=== PATIENT | male | born 1945 | race African-American/Black ===

== ENCOUNTER 2023-03-06 13:36 | Inpatient (IN) | payer MEDICARE, OTHER ==
[~2023-03-06] VITALS: Ht 170.2 cm; Wt 67.6 kg
[2023-03-06] MEDS ORDERED: MAG30ORA PO (14:09)
[2023-03-06] MEDS ORDERED: NA P133E RC (14:09)
[2023-03-06] MEDS ORDERED: MAGN400O6 PO (14:09)
[2023-03-06] MEDS ORDERED: ACET-2605 PO (14:09)
[2023-03-06] MEDS ORDERED: OLAN2.5T3 PO (14:09)
[2023-03-06] MEDS ORDERED: DOCU100T2 PO (14:09)
[2023-03-06] MEDS ORDERED: OLAN5TAB3 PO (14:09)
[2023-03-06] MEDS ORDERED: LISI20TA30 PO (14:09)
[2023-03-06] MEDS ORDERED: ATOR80TA PO (14:09)
[2023-03-06] MEDS ORDERED: CARV3.122 PO (14:09)
[2023-03-06] MEDS ORDERED: TAMS-12 PO (14:09)
[2023-03-06] MEDS ORDERED: ACET-868 PO (14:09)
[2023-03-06] MEDS ORDERED: CLON0.1T PO (14:09)
[2023-03-06] MEDS ORDERED: DIVA-76 PO (14:09)
[2023-03-06] MEDS ORDERED: POLY15DR17 EACHEYE (14:09)
[2023-03-06 14:32] LABS: BASOPHILS % (AUTO) 0.6 % (0.0-2.0); EOSINOPHILS # (AUTO) 0.2 K/uL (0.0-0.7); EOSINOPHILS % (AUTO) 2.3 % (0.0-6.0); HEMATOCRIT 36 % (39-51); HEMOGLOBIN 11.8 g/dL (13.5-17.5); LYMPHOCYTES # (AUTO) 1.7 K/uL (0.8-4.8); LYMPHOCYTES % (AUTO) 20.3 % (20.0-44.0); MEAN CORPUSCULAR HEMOGLOBIN 26 PG (26.0-33.0); MEAN CORPUSCULAR HGB CONC 33 g/dl (31.0-36.0); MEAN CORPUSCULAR VOLUME 79 fL (80-96); MONOCYTES # (AUTO) 0.9 K/uL (0.1-1.30); MONOCYTES % (AUTO) 11.2 % (2.0-12.0); NEUTROPHILS # (AUTO) 5.5 K/uL (1.8-8.9); NEUTROPHILS % (AUTO) 65.6 % (43.0-81.0); RED BLOOD CELL COUNT(AUTO) 4.58 MIL/uL (4.5-6.0); RED CELL DISTRIBUTION WIDTH 17.3 % (11.5-15.0); WHITE BLOOD COUNT (AUTO) 8.3 K/uL (4.3-11.0)
[2023-03-06 14:56] LABS: ALANINE AMINOTRANSFERASE 24 U/L (12-78); ALBUMIN 2.8 g/dL (3.4-5.0); ALCOHOL, BLOOD < 3 mg/dL (0-10); ALKALINE PHOSPHATASE 77 U/L (46-116); ASPARTATE AMINOTRANSFERASE 14 U/L (15-37); BILIRUBIN,DIRECT 0.1 mg/dL (0.0-0.2); BILIRUBIN,TOTAL 0.3 mg/dL (0.2-1.0); CARBON DIOXIDE 30 mmol/L (21-32); CHLORIDE 104 mmol/L (98-107); CREATININE 1.4 mg/dL (0.6-1.3); GLUCOSE 77 mg/dL (74-106); POTASSIUM 3.8 mmol/L (3.5-5.1); SODIUM SERUM 139 mmol/L (136-145); TOTAL PROTEIN, SERUM 7.5 g/dL (6.4-8.2); UREA NITROGEN, BLOOD 21 mg/dL (7-18)
[2023-03-06 14:57] LABS: ACETAMINOPHEN 0 ug/ml (10-30); SALICYLATE 0.3 mg/dL (2.8-20.0)
[2023-03-06 15:11] LABS: PLATELET COUNT (AUTO) 176 K/uL (150-450)
[2023-03-06 15:36] LABS: APPEARANCE,URINE CLEAR (CLEAR); BILIRUBIN,URINE NEGATIVE (NEGATIVE); BLOOD, URINE NEGATIVE Ery/uL (NEGATIVE); COLOR,URINE YELLOW (YELLOW); KETONES,URINE NEGATIVE (NEGATIVE); LEUKOCYTE ESTERASE ,URINE NEGATIVE (NEGATIVE); NITRITE, URINE NEGATIVE (NEGATIVE); PROTEIN,URINE NEGATIVE (NEGATIVE); UGLUCOSE NEGATIVE (NEGATIVE); UROBILINOGEN,URINE 0.2 EU/dL (0.2)
[2023-03-06 15:57] LABS: AMPHETAMINE, URINE NEGATIVE (NEGATIVE); BARBITURATE, URINE NEGATIVE (NEGATIVE); BENZODIAZEPINE, URINE NEGATIVE (NEGATIVE); CANNABINOID, URINE NEGATIVE (NEGATIVE); COCCAINE, URINE NEGATIVE (NEGATIVE); OPIATE, URINE NEGATIVE (NEGATIVE); PHENCYCLIDINE SCREEN,URINE NEGATIVE (NEGATIVE)
[2023-03-06] MEDS ORDERED: MAG HYDROX/AL HYDROX/SIMETH 30 ML UDC PO PRN ×2 (17:00→22:00)
[2023-03-06] MEDS ORDERED: ACETAMINOPHEN 325 MG TABLET PO PRN ×2 (17:00→22:00)
[2023-03-06] MEDS ORDERED: MAGNESIUM HYDROXIDE 30 ML UDC PO PRN ×2 (17:00→22:00)
[2023-03-06] MEDS: CARVEDILOL 3.125 MG TABLET PO SCH (17:00)
[2023-03-06] MEDS ORDERED: ACETAMINOPHEN ES 500 MG TABLET PO PRN (17:00)
[2023-03-06] MEDS ORDERED: CARVEDILOL 3.125 MG TABLET ONE (18:09)
[2023-03-06] MEDS ORDERED: BLOOD SUGAR DIAGNOSTIC 1 EACH STRIP IN ONE (22:00)
[2023-03-06] MEDS: TAMSULOSIN 0.4 MG CAP.SR.24H PO SCH (22:34)
[2023-03-06] MEDS: ATORVASTATIN 40 MG TABLET PO SCH (22:34)
[2023-03-06 23:11] VITALS: BP 151/96; TEMP 98.1
[2023-03-06] MEDS: TEMAZEPAM 7.5 MG CAPSULE PO PRN (23:19)
[2023-03-07] MEDS: CLONIDINE HCL 0.1 MG TABLET PO PRN (01:46)
[2023-03-07] MEDS: LORAZEPAM 0.5 MG TABLET PO PRN (05:16)
[2023-03-07 08:00] VITALS: BP 149/86; TEMP 98.7; O2SAT 100
[2023-03-07 08:10] LABS: CREATININE 1.4 mg/dL (0.6-1.3)
[2023-03-07 08:16] LABS: CHOLESTEROL 137 mg/dL (<200); HDL CHOLESTEROL 47 mg/dL (40-60); LDL 69 mg/dL (0-99); TRIGLYCERIDES 70 mg/dL (30-150)
[2023-03-07] MEDS: POLYVINYL ALCOHOL 15 ML BOTTLE EACHEYE SCH ×2 (08:40→16:33)
[2023-03-07] MEDS: CARVEDILOL 3.125 MG TABLET PO SCH ×2 (08:40→16:34)
[2023-03-07] MEDS: DOCUSATE SODIUM 100 MG CAPSULE PO SCH ×2 (08:40→16:34)
[2023-03-07] MEDS: LISINOPRIL (20MG) 20 MG TABLET PO SCH (08:41)
[2023-03-07] MEDS: OLANZAPINE 2.5 MG TABLET PO SCH ×2 (11:43→16:34)
[2023-03-07] MEDS: DIVALPROEX SODIUM 125 MG CAP.SPRINK PO SCH ×2 (12:15→16:34)
[2023-03-07 16:00] VITALS: BP 150/96; TEMP 98.9; O2SAT 97
[2023-03-07 20:01] VITALS: BP 141/98; TEMP 98; O2SAT 98
[2023-03-07] MEDS: ATORVASTATIN 40 MG TABLET PO SCH (21:11)
[2023-03-07] MEDS: TAMSULOSIN 0.4 MG CAP.SR.24H PO SCH (21:11)
[2023-03-07] MEDS: OLANZAPINE 10 MG TABLET PO SCH (21:11)
[2023-03-07] MEDS: TEMAZEPAM 7.5 MG CAPSULE PO PRN (21:27)
[2023-03-08] MEDS: LORAZEPAM 0.5 MG TABLET PO PRN (00:51)
[2023-03-08 08:00] VITALS: BP 159/95; TEMP 98.7; O2SAT 96
[2023-03-08] MEDS: DIVALPROEX SODIUM 125 MG CAP.SPRINK PO SCH ×3 (08:07→16:46)
[2023-03-08] MEDS: OLANZAPINE 2.5 MG TABLET PO SCH ×2 (08:07→16:48)
[2023-03-08] MEDS: CARVEDILOL 3.125 MG TABLET PO SCH ×2 (08:07→16:47)
[2023-03-08] MEDS: LISINOPRIL (20MG) 20 MG TABLET PO SCH (08:07)
[2023-03-08] MEDS: DOCUSATE SODIUM 100 MG CAPSULE PO SCH ×2 (08:07→16:46)
[2023-03-08] MEDS: POLYVINYL ALCOHOL 15 ML BOTTLE EACHEYE SCH ×2 (08:08→16:52)
[2023-03-08] MEDS: CLONIDINE HCL 0.1 MG TABLET PO PRN (08:09)
[2023-03-08 13:53] LABS: EOSINOPHIL,URINE None Seen
[2023-03-08 14:04] LABS: APPEARANCE,URINE CLEAR (CLEAR); BILIRUBIN,URINE NEGATIVE (NEGATIVE); BLOOD, URINE NEGATIVE Ery/uL (NEGATIVE); COLOR,URINE YELLOW (YELLOW); KETONES,URINE NEGATIVE (NEGATIVE); LEUKOCYTE ESTERASE ,URINE NEGATIVE (NEGATIVE); NITRITE, URINE NEGATIVE (NEGATIVE); PROTEIN,URINE TRACE mg/dl (NEGATIVE); UGLUCOSE NEGATIVE (NEGATIVE); UROBILINOGEN,URINE 0.2 EU/dL (0.2)
[2023-03-08 14:09] LABS: CREATININE, URINE 155.2 MG/DL (30.0-125.0); URINE TOTAL PROTEIN 23.2 mg/dL (0-11.9)
[2023-03-08 14:25] LABS: ADD URINE CULTURE NO; BACTERIA,URINE None seen /HPF (None Seen); RBC,URINE NONE SEEN /HPF (0-2); SQUAMOUS EPITHELIAL CELL,UR None Seen /HPF (None Seen); WBC,URINE NONE SEEN /HPF (0-3)
[2023-03-08 16:00] VITALS: BP 142/99; TEMP 97.9; O2SAT 99
[2023-03-08 20:40] VITALS: BP 149/90; TEMP 98.1; O2SAT 98
[2023-03-08] MEDS: ATORVASTATIN 40 MG TABLET PO SCH (21:21)
[2023-03-08] MEDS: TAMSULOSIN 0.4 MG CAP.SR.24H PO SCH (21:21)
[2023-03-08] MEDS: OLANZAPINE 10 MG TABLET PO SCH (21:22)
[2023-03-08] MEDS: TEMAZEPAM 7.5 MG CAPSULE PO PRN (21:26)
[2023-03-09 08:00] VITALS: BP 137/80; TEMP 97.8; O2SAT 98
[2023-03-09] MEDS: CARVEDILOL 3.125 MG TABLET PO SCH ×2 (09:58→16:33)
[2023-03-09] MEDS: POLYVINYL ALCOHOL 15 ML BOTTLE EACHEYE SCH ×2 (09:58→16:40)
[2023-03-09] MEDS: OLANZAPINE 2.5 MG TABLET PO SCH ×2 (09:58→16:33)
[2023-03-09] MEDS: DIVALPROEX SODIUM 125 MG CAP.SPRINK PO SCH ×3 (09:58→16:32)
[2023-03-09] MEDS: DOCUSATE SODIUM 100 MG CAPSULE PO SCH ×2 (09:58→16:32)
[2023-03-09] MEDS: LISINOPRIL (20MG) 20 MG TABLET PO SCH (09:59)
[2023-03-09 16:00] VITALS: BP 149/88; TEMP 97.9; O2SAT 100
[2023-03-09 20:00] VITALS: BP 145/80; TEMP 97.9; O2SAT 98
[2023-03-09] MEDS: TAMSULOSIN 0.4 MG CAP.SR.24H PO SCH (21:29)
[2023-03-09] MEDS: ATORVASTATIN 40 MG TABLET PO SCH (21:30)
[2023-03-09] MEDS: OLANZAPINE 10 MG TABLET PO SCH (21:30)
[2023-03-10] MEDS ORDERED: Z GUARD REMEDY 4 OZ OINT TP PRN (07:00)
[2023-03-10 08:00] VITALS: BP 145/99; TEMP 97.5; O2SAT 94
[2023-03-10] MEDS: DOCUSATE SODIUM 100 MG CAPSULE PO SCH ×2 (08:46→16:46)
[2023-03-10] MEDS: DIVALPROEX SODIUM 125 MG CAP.SPRINK PO SCH ×3 (08:46→16:45)
[2023-03-10] MEDS: CARVEDILOL 3.125 MG TABLET PO SCH ×2 (08:46→16:46)
[2023-03-10] MEDS: LISINOPRIL (20MG) 20 MG TABLET PO SCH (08:46)
[2023-03-10] MEDS: OLANZAPINE 2.5 MG TABLET PO SCH ×2 (08:46→16:45)
[2023-03-10] MEDS: POLYVINYL ALCOHOL 15 ML BOTTLE EACHEYE SCH ×2 (08:47→16:46)
[2023-03-10 16:00] VITALS: BP 137/90; TEMP 98.7; O2SAT 96
[2023-03-10 17:11] LABS: BASOPHILS % (AUTO) 0.5 % (0.0-2.0); EOSINOPHILS # (AUTO) 0.2 K/uL (0.0-0.7); EOSINOPHILS % (AUTO) 2.9 % (0.0-6.0); HEMATOCRIT 37 % (39-51); HEMOGLOBIN 11.8 g/dL (13.5-17.5); LYMPHOCYTES % (AUTO) 28.4 % (20.0-44.0); MEAN CORPUSCULAR HEMOGLOBIN 26 PG (26.0-33.0); MEAN CORPUSCULAR HGB CONC 32 g/dl (31.0-36.0); MEAN CORPUSCULAR VOLUME 79 fL (80-96); MONOCYTES % (AUTO) 14.7 % (2.0-12.0); NEUTROPHILS # (AUTO) 3.8 K/uL (1.8-8.9); NEUTROPHILS % (AUTO) 53.5 % (43.0-81.0); PLATELET COUNT (AUTO) 133 K/uL (150-450); RED BLOOD CELL COUNT(AUTO) 4.63 MIL/uL (4.5-6.0); RED CELL DISTRIBUTION WIDTH 16.9 % (11.5-15.0)
[2023-03-10 17:33] LABS: ALANINE AMINOTRANSFERASE 20 U/L (12-78); ALBUMIN 2.5 g/dL (3.4-5.0); ALKALINE PHOSPHATASE 73 U/L (46-116); ASPARTATE AMINOTRANSFERASE 34 U/L (15-37); BILIRUBIN,TOTAL 0.4 mg/dL (0.2-1.0); CALCIUM, SERUM 8.6 mg/dL (8.5-10.1); CARBON DIOXIDE 28 mmol/L (21-32); CHLORIDE 105 mmol/L (98-107); CREATININE 1.5 mg/dL (0.6-1.3); GLUCOSE 99 mg/dL (74-106); POTASSIUM 4.2 mmol/L (3.5-5.1); SODIUM SERUM 140 mmol/L (136-145); TOTAL PROTEIN, SERUM 7.1 g/dL (6.4-8.2); UREA NITROGEN, BLOOD 32 mg/dL (7-18)
[2023-03-10] MEDS: CLONIDINE HCL 0.1 MG TABLET PO PRN (20:38)
[2023-03-10 20:43] VITALS: BP 169/98; TEMP 98.2; O2SAT 96
[2023-03-10] MEDS: TAMSULOSIN 0.4 MG CAP.SR.24H PO SCH (22:04)
[2023-03-10] MEDS: ATORVASTATIN 40 MG TABLET PO SCH (22:04)
[2023-03-10] MEDS: OLANZAPINE 10 MG TABLET PO SCH (22:05)
[2023-03-11 08:00] VITALS: BP 125/84; TEMP 97.8; O2SAT 100
[2023-03-11 08:00] LABS: BASOPHILS # (AUTO) 0.1 K/uL (0.0-0.2); BASOPHILS % (AUTO) 0.7 % (0.0-2.0); EOSINOPHILS # (AUTO) 0.2 K/uL (0.0-0.7); EOSINOPHILS % (AUTO) 2.7 % (0.0-6.0); HEMATOCRIT 36 % (39-51); LYMPHOCYTES # (AUTO) 2.1 K/uL (0.8-4.8); LYMPHOCYTES % (AUTO) 24.4 % (20.0-44.0); MEAN CORPUSCULAR HEMOGLOBIN 26 PG (26.0-33.0); MEAN CORPUSCULAR HGB CONC 33 g/dl (31.0-36.0); MEAN CORPUSCULAR VOLUME 79 fL (80-96); MONOCYTES % (AUTO) 11.3 % (2.0-12.0); NEUTROPHILS # (AUTO) 5.2 K/uL (1.8-8.9); NEUTROPHILS % (AUTO) 60.9 % (43.0-81.0); PLATELET COUNT (AUTO) 141 K/uL (150-450); RED BLOOD CELL COUNT(AUTO) 4.62 MIL/uL (4.5-6.0); RED CELL DISTRIBUTION WIDTH 16.7 % (11.5-15.0); WHITE BLOOD COUNT (AUTO) 8.5 K/uL (4.3-11.0)
[2023-03-11] MEDS: LORAZEPAM 0.5 MG TABLET PO PRN (08:46)
[2023-03-11] MEDS: OLANZAPINE 2.5 MG TABLET PO SCH (08:47)
[2023-03-11] MEDS: CARVEDILOL 3.125 MG TABLET PO SCH ×2 (08:47→16:28)
[2023-03-11] MEDS: DOCUSATE SODIUM 100 MG CAPSULE PO SCH ×2 (08:47→16:28)
[2023-03-11] MEDS: LISINOPRIL (20MG) 20 MG TABLET PO SCH (08:48)
[2023-03-11] MEDS: DIVALPROEX SODIUM 125 MG CAP.SPRINK PO SCH ×3 (08:48→16:28)
[2023-03-11] MEDS: POLYVINYL ALCOHOL 15 ML BOTTLE EACHEYE SCH ×2 (08:55→16:28)
[2023-03-11 09:04] LABS: CALCIUM, SERUM 9.1 mg/dL (8.5-10.1); CARBON DIOXIDE 24 mmol/L (21-32); CHLORIDE 105 mmol/L (98-107); CREATININE 1.4 mg/dL (0.6-1.3); GLUCOSE 85 mg/dL (74-106); MAGNESIUM 2.3 mg/dL (1.8-2.4); PHOSPHORUS 4.1 mg/dL (2.5-4.9); POTASSIUM 3.9 mmol/L (3.5-5.1); SODIUM SERUM 139 mmol/L (136-145); UREA NITROGEN, BLOOD 31 mg/dL (7-18)
[2023-03-11 16:00] VITALS: BP 149/92; TEMP 97.8; O2SAT 96
[2023-03-11 20:00] VITALS: BP 128/81; TEMP 98.3; O2SAT 98
[2023-03-11] MEDS: ATORVASTATIN 40 MG TABLET PO SCH (22:05)
[2023-03-11] MEDS: OLANZAPINE 10 MG TABLET PO SCH (22:05)
[2023-03-11] MEDS: TAMSULOSIN 0.4 MG CAP.SR.24H PO SCH (22:05)
[2023-03-12 08:00] VITALS: BP 131/55; TEMP 97.7; O2SAT 97
[2023-03-12] MEDS: DOCUSATE SODIUM 100 MG CAPSULE PO SCH ×2 (09:16→17:00)
[2023-03-12] MEDS: OLANZAPINE 2.5 MG TABLET PO SCH (09:25)
[2023-03-12] MEDS: LISINOPRIL (20MG) 20 MG TABLET PO SCH (09:25)
[2023-03-12] MEDS: DIVALPROEX SODIUM 125 MG CAP.SPRINK PO SCH ×3 (09:25→17:00)
[2023-03-12] MEDS: CARVEDILOL 3.125 MG TABLET PO SCH ×2 (09:26→17:00)
[2023-03-12] MEDS: POLYVINYL ALCOHOL 15 ML BOTTLE EACHEYE SCH ×2 (09:31→17:00)
[2023-03-12 16:00] VITALS: BP 130/67; TEMP 97.7; O2SAT 97
[2023-03-12 20:59] VITALS: BP 132/98; TEMP 98.1; O2SAT 97
[2023-03-12] MEDS: OLANZAPINE 10 MG TABLET PO SCH (21:17)
[2023-03-12] MEDS: ATORVASTATIN 40 MG TABLET PO SCH (21:17)
[2023-03-12] MEDS: TAMSULOSIN 0.4 MG CAP.SR.24H PO SCH (21:17)
[2023-03-13 08:00] VITALS: BP 135/69; TEMP 98.4; O2SAT 100
[2023-03-13] MEDS: OLANZAPINE 2.5 MG TABLET PO SCH (09:44)
[2023-03-13] MEDS: DIVALPROEX SODIUM 125 MG CAP.SPRINK PO SCH ×3 (09:44→18:16)
[2023-03-13] MEDS: LISINOPRIL (20MG) 20 MG TABLET PO SCH (09:44)
[2023-03-13] MEDS: DOCUSATE SODIUM 100 MG CAPSULE PO SCH ×2 (09:44→18:15)
[2023-03-13] MEDS: POLYVINYL ALCOHOL 15 ML BOTTLE EACHEYE SCH ×2 (09:44→18:15)
[2023-03-13] MEDS: CARVEDILOL 3.125 MG TABLET PO SCH ×2 (09:44→18:15)
[2023-03-13 16:00] VITALS: BP 147/79; TEMP 98.6; O2SAT 100
[2023-03-13 20:28] VITALS: BP 149/83; TEMP 97.9; O2SAT 94
[2023-03-13] MEDS: ATORVASTATIN 40 MG TABLET PO SCH (21:15)
[2023-03-13] MEDS: OLANZAPINE 10 MG TABLET PO SCH (21:15)
[2023-03-13] MEDS: TAMSULOSIN 0.4 MG CAP.SR.24H PO SCH (21:16)
[2023-03-14 08:00] VITALS: BP 107/76; TEMP 97.8; O2SAT 97
[2023-03-14] MEDS: DIVALPROEX SODIUM 125 MG CAP.SPRINK PO SCH ×3 (08:58→16:20)
[2023-03-14] MEDS: DOCUSATE SODIUM 100 MG CAPSULE PO SCH ×2 (08:58→16:19)
[2023-03-14] MEDS: OLANZAPINE 2.5 MG TABLET PO SCH (08:58)
[2023-03-14] MEDS: LISINOPRIL (20MG) 20 MG TABLET PO SCH (08:59)
[2023-03-14] MEDS: POLYVINYL ALCOHOL 15 ML BOTTLE EACHEYE SCH ×2 (08:59→16:21)
[2023-03-14] MEDS: CARVEDILOL 3.125 MG TABLET PO SCH ×2 (08:59→16:20)
[2023-03-14 16:00] VITALS: BP 137/68; TEMP 97.9; O2SAT 100
[2023-03-14 21:17] VITALS: BP 153/76; TEMP 97.9; O2SAT 100
[2023-03-14] MEDS: TAMSULOSIN 0.4 MG CAP.SR.24H PO SCH (21:19)
[2023-03-14] MEDS: OLANZAPINE 10 MG TABLET PO SCH (21:19)
[2023-03-14] MEDS: ATORVASTATIN 40 MG TABLET PO SCH (21:19)
[2023-03-15] MEDS: TEMAZEPAM 7.5 MG CAPSULE PO PRN (00:09)
[2023-03-15 08:00] VITALS: BP 173/83; TEMP 98.7; O2SAT 99
[2023-03-15] MEDS: OLANZAPINE 2.5 MG TABLET PO SCH (09:04)
[2023-03-15] MEDS: DIVALPROEX SODIUM 125 MG CAP.SPRINK PO SCH ×2 (09:04→13:33)
[2023-03-15 09:07] VITALS: BP 173/83
[2023-03-15] MEDS: LISINOPRIL (20MG) 20 MG TABLET PO SCH (09:07)
[2023-03-15] MEDS: DOCUSATE SODIUM 100 MG CAPSULE PO SCH (09:07)
[2023-03-15] MEDS: CARVEDILOL 3.125 MG TABLET PO SCH (09:07)
[2023-03-15] MEDS: POLYVINYL ALCOHOL 15 ML BOTTLE EACHEYE SCH (09:09)
== END 2023-03-15 15:15 | DRG 885 ==
LOC: ER 13:40 → TRANSITION 19:05 → GPS 20:55
PROVIDERS: ADMIT Psychiatry & Neurology Psychosomatic Medicine; ATTEND Student in an Organized Health Care Education/Training Program
DX: F39 Unspecified mood [affective] disorder (principal); N17.0 Acute kidney failure with tubular necrosis; N18.9 Chronic kidney disease, unspecified; G93.41 Metabolic encephalopathy; E44.0 Moderate protein-calorie malnutrition; F03.92 Unspecified dementia, unspecified severity, with psychotic disturbance; F03.93 Unspecified dementia, unspecified severity, with mood disturbance; F03.911 Unspecified dementia, unspecified severity, with agitation; F29 Unspecified psychosis not due to a substance or known physiological condition; Z20.822 Contact with and (suspected) exposure to COVID-19; Z79.899 Other long term (current) drug therapy; Z73.6 Limitation of activities due to disability; E88.09 Other disorders of plasma-protein metabolism, not elsewhere classified; E78.5 Hyperlipidemia, unspecified; D64.9 Anemia, unspecified; I12.9 Hypertensive chronic kidney disease with stage 1 through stage 4 chronic kidney disease, or unspecified chronic kidney disease; M89.8X9 Other specified disorders of bone, unspecified site; F25.0 Schizoaffective disorder, bipolar type
CPT/HCPCS: 36415; 76770-TC; 80048-TC; 80053-TC; 80061-TC; 80076-TC; 80164-TC; 81001; 82565-TC; 82570-TC; 82962-TC; 83735-TC; 84100-TC; 84300-TC; 85025-TC; 87081-TC; 97110-TC; 97116-TC; 97530-TC; G0480

== ENCOUNTER 2023-06-01 22:06 | Inpatient (IN) | payer MEDICARE, OTHER ==
[~2023-06-01] VITALS: Ht 177.8 cm; Wt 83.0 kg
[~2023-06-01 22:06] MED LIST: ACET-2605 PO; ACET-868 PO; ATOR80TA PO; CARV3.122 PO; CLON0.1T PO; DIVA-76 PO; DOCU100T2 PO; LISI20TA30 PO; MAG30ORA PO; MAGN400O6 PO; NA P133E RC; OLAN2.5T3 PO; OLAN5TAB3 PO; POLY15DR17 EACHEYE; TAMS-12 PO
[2023-06-01] MEDS ORDERED: ACETAMINOPHEN 650 MG/SUPP.RECT RC ONE (22:32)
[2023-06-01] MEDS: ACETAMINOPHEN 650 MG/SUPP.RECT RC ONE (23:00)
[2023-06-01 23:17] LABS: BASOPHILS % (AUTO) 0.2 % (0.0-2.0); EOSINOPHILS # (AUTO) 0.3 K/uL (0.0-0.7); EOSINOPHILS % (AUTO) 1.3 % (0.0-6.0); HEMATOCRIT 35 % (39-51); LYMPHOCYTES # (AUTO) 0.5 K/uL (0.8-4.8); LYMPHOCYTES % (AUTO) 2.5 % (20.0-44.0); MEAN CORPUSCULAR HEMOGLOBIN 26 PG (26.0-33.0); MEAN CORPUSCULAR HGB CONC 32 g/dl (31.0-36.0); MEAN CORPUSCULAR VOLUME 83 fL (80-96); MONOCYTES # (AUTO) 0.8 K/uL (0.1-1.30); NEUTROPHILS # (AUTO) 17.7 K/uL (1.8-8.9); PLATELET COUNT (AUTO) 157 K/uL (150-450); RED BLOOD CELL COUNT(AUTO) 4.19 MIL/uL (4.5-6.0); WHITE BLOOD COUNT (AUTO) 19.2 K/uL (4.3-11.0)
[2023-06-01 23:34] LABS: INR 1.06 (0.91-1.10); PARTIAL THROMBOPLASTIN TIME 28.4 SEC (24.3-34.3); PROTHROMBIN TIME 11.2 SECS (9.2-11.1)
[2023-06-01 23:48] LABS: APPEARANCE,URINE TURBID (CLEAR); BILIRUBIN,URINE NEGATIVE (NEGATIVE); BLOOD, URINE 2+ Ery/uL (NEGATIVE); COLOR,URINE DARK YELLOW (YELLOW); KETONES,URINE TRACE mg/dL (NEGATIVE); LEUKOCYTE ESTERASE ,URINE 3+ (NEGATIVE); NITRITE, URINE NEGATIVE (NEGATIVE); PROTEIN,URINE NEGATIVE (NEGATIVE); UGLUCOSE NEGATIVE (NEGATIVE)
[2023-06-01 23:54] LABS: ADD URINE CULTURE YES; BACTERIA,URINE Moderate /HPF (None Seen); SQUAMOUS EPITHELIAL CELL,UR Rare /HPF (None Seen); WBC,URINE 51-80 /HPF (0-3)
[2023-06-02] VITALS (7 sets, daily range): BP systolic 133–164; BP diastolic 85–92; TEMP 98–99.1; O2SAT 94–100
[2023-06-02 00:05] LABS: CALCIUM, SERUM 8.7 mg/dL (8.5-10.1); CARBON DIOXIDE 30 mmol/L (21-32); CHLORIDE 109 mmol/L (98-107); CREATININE 1.7 mg/dL (0.6-1.3); GLUCOSE 109 mg/dL (74-106); POTASSIUM 3.7 mmol/L (3.5-5.1); SODIUM SERUM 146 mmol/L (136-145); UREA NITROGEN, BLOOD 33 mg/dL (7-18)
[2023-06-02 00:11] LABS: ALANINE AMINOTRANSFERASE 17 U/L (12-78); ALBUMIN 2.7 g/dL (3.4-5.0); ALKALINE PHOSPHATASE 69 U/L (46-116); ASPARTATE AMINOTRANSFERASE 11 U/L (15-37); BILIRUBIN,DIRECT 0.1 mg/dL (0.0-0.2); BILIRUBIN,TOTAL 0.5 mg/dL (0.2-1.0); TOTAL PROTEIN, SERUM 7.1 g/dL (6.4-8.2)
[2023-06-02] MEDS ORDERED: AZITHROMYCIN 500 MG VIAL ONE (00:34)
[2023-06-02] MEDS ORDERED: CEFTRIAXONE 1GM BAG (ER ONLY) 50 ML IV ONE (00:34)
[2023-06-02] MEDS: CEFTRIAXONE 1GM BAG (ER ONLY) 1 GM/50 ML PIGGYBACK IV ONE (00:45)
[2023-06-02] MEDS: AZITHROMYCIN 500 MG in IV D5W 250 ML IV ONE (01:06)
[2023-06-02 01:58] LABS: LACTIC ACID 1.7 mmol/L (0.4-2.0)
[2023-06-02] MEDS ORDERED: Z GUARD REMEDY 4 OZ OINT TP PRN (02:30)
[2023-06-02] MEDS ORDERED: ACETAMINOPHEN 325 MG TABLET PO PRN ×2 (02:30→09:30)
[2023-06-02] MEDS ORDERED: ONDANSETRON HCL/PF 4 MG/2 ML VIAL IVP PRN (02:30)
[2023-06-02] MEDS ORDERED: ASPIRIN 325 MG TABLET ONE (02:35)
[2023-06-02] MEDS: ASPIRIN 325 MG TABLET PO ONE (02:41)
[2023-06-02] MEDS: IV D5W 1,000 ML IV PRN (06:56)
[2023-06-02] MEDS: PANTOPRAZOLE 40 MG TABLET.DR PO SCH (08:19)
[2023-06-02] MEDS ORDERED: FURO20TA4 PO (09:06)
[2023-06-02] MEDS: ASPIRIN 81 MG TAB.CHEW PO SCH (09:13)
[2023-06-02] MEDS: HEPARIN SODIUM, PORCINE 5000 UNITS/1 ML VIAL SQ SCH (09:15)
[2023-06-02] MEDS ORDERED: MAGNESIUM HYDROXIDE 30 ML UDC PO PRN (09:30)
[2023-06-02] MEDS: FUROSEMIDE 40 MG/4 ML VIAL IV SCH (10:59)
[2023-06-02] MEDS: DIVALPROEX SODIUM 125 MG CAP.SPRINK PO SCH (12:41)
[2023-06-02] MEDS ORDERED: DIVALPROEX SODIUM 250 MG TABLET.DR PO SCH (13:00)
[2023-06-02] MEDS: DOCUSATE SODIUM 100 MG CAPSULE PO SCH (16:59)
[2023-06-02] MEDS: CARVEDILOL 3.125 MG TABLET PO SCH (17:00)
[2023-06-02] MEDS: CEFTRIAXONE 1 G in IV D5W 50 ML IV SCH (20:34)
[2023-06-02] MEDS ORDERED: CEFEPIME 2 GM in IV D5W 100 ML IV SCH (21:00)
[2023-06-02] MEDS ORDERED: AZITHROMYCIN 500 MG in IV D5W 250 ML IV SCH (21:00)
[2023-06-02] MEDS: CEFEPIME 1 GM in IV D5W 50 ML IV SCH (22:00)
[2023-06-02] MEDS: ATORVASTATIN 40 MG TABLET PO SCH (22:00)
[2023-06-02] MEDS: TAMSULOSIN 0.4 MG CAP.SR.24H PO SCH (22:00)
[2023-06-02] MEDS: OLANZAPINE 5 MG TABLET PO SCH (22:01)
[2023-06-03] VITALS (7 sets, daily range): BP systolic 132–159; BP diastolic 80–94; TEMP 98–99; O2SAT 92–100
[2023-06-03] MEDS: OLANZAPINE 2.5 MG TABLET PO SCH (08:17)
[2023-06-03] MEDS ORDERED: LISINOPRIL (20MG) 20 MG TABLET PO SCH (09:00)
[2023-06-03 14:42] LABS: BASOPHILS % (AUTO) 0.4 % (0.0-2.0); EOSINOPHILS # (AUTO) 0.2 K/uL (0.0-0.7); EOSINOPHILS % (AUTO) 2.2 % (0.0-6.0); HEMATOCRIT 37 % (39-51); LYMPHOCYTES # (AUTO) 1.7 K/uL (0.8-4.8); LYMPHOCYTES % (AUTO) 15.8 % (20.0-44.0); MEAN CORPUSCULAR HEMOGLOBIN 26 PG (26.0-33.0); MEAN CORPUSCULAR HGB CONC 33 g/dl (31.0-36.0); MEAN CORPUSCULAR VOLUME 80 fL (80-96); MONOCYTES # (AUTO) 1.8 K/uL (0.1-1.30); MONOCYTES % (AUTO) 16.6 % (2.0-12.0); NEUTROPHILS # (AUTO) 7.1 K/uL (1.8-8.9); PLATELET COUNT (AUTO) 132 K/uL (150-450); RED BLOOD CELL COUNT(AUTO) 4.64 MIL/uL (4.5-6.0); RED CELL DISTRIBUTION WIDTH 17.4 % (11.5-15.0); WHITE BLOOD COUNT (AUTO) 10.8 K/uL (4.3-11.0)
[2023-06-03 15:41] LABS: CALCIUM, SERUM 8.8 mg/dL (8.5-10.1); CARBON DIOXIDE 29 mmol/L (21-32); CHLORIDE 104 mmol/L (98-107); CREATININE 1.7 mg/dL (0.6-1.3); GLUCOSE 87 mg/dL (74-106); PHOSPHORUS 3.7 mg/dL (2.5-4.9); POTASSIUM 3.5 mmol/L (3.5-5.1); SODIUM SERUM 142 mmol/L (136-145); UREA NITROGEN, BLOOD 29 mg/dL (7-18)
[2023-06-03 16:53] LABS: ANISOCYTOSIS 1+; EOSINOPHILS % (MANUAL) 2 % (0-4); LYMPHOCYTES % (MANUAL) 17 % (16-48); MONOCYTES % (MANUAL) 9 % (0-11.0); NEUTROPHILS % (MANUAL) 72 (42-76); PLATELET ESTIMATE DECRE
[2023-06-03 16:54] LABS: OVALOCYTES 1+
[2023-06-04] VITALS (8 sets, daily range): BP systolic 116–148; BP diastolic 85–98; TEMP 97.7–98.2; O2SAT 96–100
[2023-06-04] MEDS ORDERED: FUROSEMIDE 20 MG TABLET PO SCH (09:00)
[2023-06-04 12:23] LABS: CALCIUM, SERUM 8.8 mg/dL (8.5-10.1); CARBON DIOXIDE 34 mmol/L (21-32); CHLORIDE 102 mmol/L (98-107); CREATININE 1.7 mg/dL (0.6-1.3); GLUCOSE 126 mg/dL (74-106); POTASSIUM 3.4 mmol/L (3.5-5.1); SODIUM SERUM 141 mmol/L (136-145); UREA NITROGEN, BLOOD 29 mg/dL (7-18)
[2023-06-04 12:39] LABS: BASOPHILS % (AUTO) 0.5 % (0.0-2.0); EOSINOPHILS # (AUTO) 0.2 K/uL (0.0-0.7); EOSINOPHILS % (AUTO) 2.9 % (0.0-6.0); HEMATOCRIT 35 % (39-51); HEMOGLOBIN 11.5 g/dL (13.5-17.5); LYMPHOCYTES # (AUTO) 1.4 K/uL (0.8-4.8); LYMPHOCYTES % (AUTO) 19.6 % (20.0-44.0); MEAN CORPUSCULAR HEMOGLOBIN 26 PG (26.0-33.0); MEAN CORPUSCULAR HGB CONC 32 g/dl (31.0-36.0); MEAN CORPUSCULAR VOLUME 80 fL (80-96); MONOCYTES # (AUTO) 0.9 K/uL (0.1-1.30); MONOCYTES % (AUTO) 13.3 % (2.0-12.0); NEUTROPHILS # (AUTO) 4.4 K/uL (1.8-8.9); NEUTROPHILS % (AUTO) 63.7 % (43.0-81.0); PLATELET COUNT (AUTO) 134 K/uL (150-450); RED BLOOD CELL COUNT(AUTO) 4.44 MIL/uL (4.5-6.0); RED CELL DISTRIBUTION WIDTH 17.6 % (11.5-15.0)
[2023-06-05] VITALS: BP 153/78; TEMP 98; O2SAT 96
[2023-06-05 01:00] VITALS: O2SAT 100
[2023-06-05 04:00] VITALS: BP 156/87; TEMP 98.2; O2SAT 97
[2023-06-05 08:00] VITALS: BP 150/91; TEMP 97.9; O2SAT 95
[2023-06-05] MEDS ORDERED: ASPI-1169 PO (10:09)
[2023-06-05] MEDS ORDERED: CEPH500C2 PO (10:09)
[2023-06-05 10:46] LABS: BASOPHILS # (AUTO) 0.1 K/uL (0.0-0.2); BASOPHILS % (AUTO) 1.8 % (0.0-2.0); EOSINOPHILS # (AUTO) 0.2 K/uL (0.0-0.7); EOSINOPHILS % (AUTO) 2.8 % (0.0-6.0); HEMATOCRIT 39 % (39-51); HEMOGLOBIN 12.6 g/dL (13.5-17.5); LYMPHOCYTES # (AUTO) 1.9 K/uL (0.8-4.8); LYMPHOCYTES % (AUTO) 24.4 % (20.0-44.0); MEAN CORPUSCULAR HEMOGLOBIN 26 PG (26.0-33.0); MEAN CORPUSCULAR HGB CONC 33 g/dl (31.0-36.0); MEAN CORPUSCULAR VOLUME 80 fL (80-96); MONOCYTES # (AUTO) 1.2 K/uL (0.1-1.30); MONOCYTES % (AUTO) 14.7 % (2.0-12.0); NEUTROPHILS # (AUTO) 4.5 K/uL (1.8-8.9); NEUTROPHILS % (AUTO) 56.3 % (43.0-81.0); PLATELET COUNT (AUTO) 133 K/uL (150-450); RED BLOOD CELL COUNT(AUTO) 4.84 MIL/uL (4.5-6.0); WHITE BLOOD COUNT (AUTO) 7.9 K/uL (4.3-11.0)
[2023-06-05 11:29] LABS: CALCIUM, SERUM 8.9 mg/dL (8.5-10.1); CARBON DIOXIDE 34 mmol/L (21-32); CHLORIDE 103 mmol/L (98-107); CREATININE 1.6 mg/dL (0.6-1.3); GLUCOSE 114 mg/dL (74-106); POTASSIUM 3.2 mmol/L (3.5-5.1); SODIUM SERUM 142 mmol/L (136-145); UREA NITROGEN, BLOOD 24 mg/dL (7-18)
[2023-06-05 12:00] VITALS: BP 150/90; TEMP 97.9; O2SAT 96
[2023-06-05 15:34] VITALS: BP 156/84
[2023-06-05] MEDS: CLONIDINE HCL 0.1 MG TABLET PO PRN (15:34)
== END 2023-06-05 15:55 | DRG 280 ==
LOC: ER 22:15 → TELE1 06-02 02:24 → MEDSG1 06-05 10:15
PROVIDERS: ADMIT Internal Medicine; ATTEND Internal Medicine
DX: I13.0 Hypertensive heart and chronic kidney disease with heart failure and stage 1 through stage 4 chronic kidney disease, or unspecified chronic kidney disease (principal); E43 Unspecified severe protein-calorie malnutrition; I21.A1 Myocardial infarction type 2; G93.41 Metabolic encephalopathy; J96.01 Acute respiratory failure with hypoxia; I50.23 Acute on chronic systolic (congestive) heart failure; N17.0 Acute kidney failure with tubular necrosis; N39.0 Urinary tract infection, site not specified; E87.0 Hyperosmolality and hypernatremia; N18.30 Chronic kidney disease, stage 3 unspecified; D64.9 Anemia, unspecified; E78.5 Hyperlipidemia, unspecified; E88.09 Other disorders of plasma-protein metabolism, not elsewhere classified; M89.8X9 Other specified disorders of bone, unspecified site; N40.0 Benign prostatic hyperplasia without lower urinary tract symptoms; Z20.822 Contact with and (suspected) exposure to COVID-19; Z68.26 Body mass index [BMI] 26.0-26.9, adult; F29 Unspecified psychosis not due to a substance or known physiological condition; F03.90 Unspecified dementia, unspecified severity, without behavioral disturbance, psychotic disturbance, mood disturbance, and anxiety; Z79.899 Other long term (current) drug therapy
CPT/HCPCS: 36415; 71045-TC; 76770-TC; 80048-TC; 80076-TC; 81001; 83605-TC; 83735-TC; 83880; 84100-TC; 84484-TC; 85025-TC; 85730-TC; 87040-TC; 87081-TC; 87086-TC; 93307-TC; 94760-TC; 94761-TC; 94762-TC; 94799-TC; 97110-TC; 97112-TC; 97530-TC; A4223; G0378; J0456; J0692; J0696; J1644; J1940; J7050; J7060; J7070

== ENCOUNTER 2024-04-11 13:21 | Inpatient (IN) | payer MEDICARE, OTHER ==
[~2024-04-11] VITALS: Ht 182.9 cm; Wt 79.4 kg
[~2024-04-11 13:21] MED LIST changes: +ASPI-1169 PO; +CEPH500C2 PO; +FURO20TA4 PO; -NA P133E RC
[2024-04-11] MEDS ORDERED: FUROSEMIDE 40 MG/4 ML VIAL ONE (14:38)
[2024-04-11 15:06] LABS: CALCIUM, SERUM 8.6 mg/dL (8.5-10.1); CARBON DIOXIDE 32 mmol/L (21-32); CHLORIDE 107 mmol/L (98-107); CREATININE 1.4 mg/dL (0.6-1.3); GLUCOSE 88 mg/dL (74-106); POTASSIUM 3.8 mmol/L (3.5-5.1); SODIUM SERUM 144 mmol/L (136-145); UREA NITROGEN, BLOOD 29 mg/dL (7-18)
[2024-04-11] MEDS: FUROSEMIDE 40 MG/4 ML VIAL IV ONE (15:14)
[2024-04-11 15:15] LABS: NT-PRO BNP 594 pg/mL (0-125)
[2024-04-11] MEDS ORDERED: BISA10SU11 RC (15:18)
[2024-04-11] MEDS ORDERED: POTASSIUM CHLORIDE PO (15:18)
[2024-04-11] MEDS ORDERED: ASPI-1169 PO (15:18)
[2024-04-11] MEDS ORDERED: PANT40TA2 PO (15:18)
[2024-04-11] MEDS ORDERED: ASCO500C18 PO (15:18)
[2024-04-11] MEDS ORDERED: LOPE2TAB25 PO (15:18)
[2024-04-11] MEDS ORDERED: ACET-868 PO (15:18)
[2024-04-11] MEDS ORDERED: MULT-225 PO (15:18)
[2024-04-11 15:20] LABS: EOSINOPHILS # (AUTO) 0.2 K/uL (0.0-0.7); MONOCYTES # (AUTO) 0.6 K/uL (0.1-1.30); NEUTROPHILS # (AUTO) 3.4 K/uL (1.8-8.9)
[2024-04-11 15:29] LABS: BASOPHILS % (AUTO) 0.5 % (0.0-2.0); EOSINOPHILS % (AUTO) 3.1 % (0.0-6.0); HEMATOCRIT 40 % (39-51); HEMOGLOBIN 13.1 g/dL (13.5-17.5); LYMPHOCYTES # (AUTO) 2.2 K/uL (0.8-4.8); LYMPHOCYTES % (AUTO) 34.4 % (20.0-44.0); MEAN CORPUSCULAR HEMOGLOBIN 26 PG (26.0-33.0); MEAN CORPUSCULAR HGB CONC 33 g/dl (31.0-36.0); MEAN CORPUSCULAR VOLUME 80 fL (80-96); MONOCYTES % (AUTO) 9.4 % (2.0-12.0); NEUTROPHILS % (AUTO) 52.6 % (43.0-81.0); PLATELET COUNT (AUTO) 115 K/uL (150-450); RED BLOOD CELL COUNT(AUTO) 5.06 MIL/uL (4.5-6.0); RED CELL DISTRIBUTION WIDTH 16.7 % (11.5-15.0); WHITE BLOOD COUNT (AUTO) 6.4 K/uL (4.3-11.0)
[2024-04-11] MEDS ORDERED: BISACODYL SUPP (10 MG) 10 MG/SUPP.RECT SUPP.RECT RC PRN (16:00)
[2024-04-11] MEDS ORDERED: FUROSEMIDE 40 MG/4 ML VIAL IV ONE (16:00)
[2024-04-11] MEDS: CARVEDILOL 3.125 MG TABLET PO SCH (16:44)
[2024-04-11] MEDS: DIVALPROEX SODIUM 250 MG TABLET.DR PO SCH (16:44)
[2024-04-11 20:00] VITALS: BP 140/94; TEMP 97.5; O2SAT 98
[2024-04-11] MEDS: TAMSULOSIN 0.4 MG CAP.SR.24H PO SCH (21:09)
[2024-04-12] VITALS (7 sets, daily range): BP systolic 120–164; BP diastolic 79–94; TEMP 97.5–98.1; O2SAT 95–99
[2024-04-12] MEDS: CLONIDINE HCL 0.1 MG TABLET PO PRN (04:15)
[2024-04-12] MEDS: PANTOPRAZOLE 40 MG TABLET.DR PO SCH (07:51)
[2024-04-12] MEDS: ASPIRIN 81 MG TAB.CHEW PO SCH (08:49)
[2024-04-12] MEDS: hydrALAZINE HCL 50 MG TABLET PO SCH (08:49)
[2024-04-12] MEDS: FUROSEMIDE 40 MG/4 ML VIAL IV SCH (08:50)
[2024-04-12] MEDS: NITROGLYCERIN 30 GM TUBE TP SCH (08:53)
[2024-04-12] MEDS ORDERED: LISINOPRIL (20MG) 20 MG TABLET PO SCH (09:00)
[2024-04-12 16:50] LABS: CREATININE, URINE 47.5 MG/DL (30.0-125.0); URINE TOTAL PROTEIN 6.9 mg/dL (0-11.9)
[2024-04-12 17:16] LABS: APPEARANCE,URINE CLEAR (CLEAR); BILIRUBIN,URINE NEGATIVE (NEGATIVE); BLOOD, URINE NEGATIVE Ery/uL (NEGATIVE); COLOR,URINE YELLOW (YELLOW); KETONES,URINE NEGATIVE (NEGATIVE); LEUKOCYTE ESTERASE ,URINE 1+ (NEGATIVE); NITRITE, URINE NEGATIVE (NEGATIVE); PROTEIN,URINE NEGATIVE (NEGATIVE); UGLUCOSE NEGATIVE (NEGATIVE); UROBILINOGEN,URINE 0.2 EU/dL (0.2)
[2024-04-12 17:25] LABS: ADD URINE CULTURE YES; BACTERIA,URINE Moderate /HPF (None Seen); RBC,URINE NONE SEEN /HPF (0-2); SQUAMOUS EPITHELIAL CELL,UR Rare /HPF (None Seen)
[2024-04-12 18:00] LABS: EOSINOPHIL,URINE None Seen
[2024-04-13] VITALS: BP 159/83; TEMP 98; TEMP 98.4; O2SAT 96; O2SAT 98
[2024-04-13 04:00] VITALS: BP 142/79; TEMP 98.6; O2SAT 96
[2024-04-13] MEDS ORDERED: ONDANSETRON HCL/PF 4 MG/2 ML VIAL IVP PRN (07:00)
[2024-04-13] MEDS ORDERED: MAG HYDROX/AL HYDROX/SIMETH 30 ML UDC PO PRN (07:00)
[2024-04-13] MEDS ORDERED: MAGNESIUM HYDROXIDE 30 ML UDC PO PRN (07:00)
[2024-04-13 08:00] VITALS: BP 116/80; TEMP 97.5; O2SAT 96
[2024-04-13] MEDS: CLOTRIMAZOLE 1% 15 GM TUBE TP SCH (10:34)
[2024-04-13] MEDS: AMMONIUM LACTATE 227 GM BOTTLE TP SCH (10:34)
[2024-04-13 11:56] LABS: BASOPHILS % (AUTO) 0.3 % (0.0-2.0); EOSINOPHILS # (AUTO) 0.1 K/uL (0.0-0.7); EOSINOPHILS % (AUTO) 1.9 % (0.0-6.0); HEMATOCRIT 39 % (39-51); HEMOGLOBIN 12.7 g/dL (13.5-17.5); LYMPHOCYTES # (AUTO) 1.9 K/uL (0.8-4.8); LYMPHOCYTES % (AUTO) 28.4 % (20.0-44.0); MEAN CORPUSCULAR HEMOGLOBIN 26 PG (26.0-33.0); MEAN CORPUSCULAR HGB CONC 33 g/dl (31.0-36.0); MEAN CORPUSCULAR VOLUME 79 fL (80-96); MONOCYTES # (AUTO) 0.9 K/uL (0.1-1.30); MONOCYTES % (AUTO) 13.1 % (2.0-12.0); NEUTROPHILS # (AUTO) 3.8 K/uL (1.8-8.9); NEUTROPHILS % (AUTO) 56.3 % (43.0-81.0); PLATELET COUNT (AUTO) 122 K/uL (150-450); RED BLOOD CELL COUNT(AUTO) 4.89 MIL/uL (4.5-6.0); RED CELL DISTRIBUTION WIDTH 16.4 % (11.5-15.0); WHITE BLOOD COUNT (AUTO) 6.8 K/uL (4.3-11.0)
[2024-04-13 12:00] LABS: CALCIUM, SERUM 8.6 mg/dL (8.5-10.1); CREATININE 1.6 mg/dL (0.6-1.3); POTASSIUM 3.3 mmol/L (3.5-5.1)
[2024-04-13 12:07] LABS: ALBUMIN 2.7 g/dL (3.4-5.0); BILIRUBIN,TOTAL 0.4 mg/dL (0.2-1.0); MAGNESIUM 2.1 mg/dL (1.8-2.4); PHOSPHORUS 3.2 mg/dL (2.5-4.9); TOTAL PROTEIN, SERUM 7.1 g/dL (6.4-8.2)
[2024-04-13] MEDS: hydrALAZINE HCL 50 MG TABLET PO SCH (12:50)
[2024-04-13 16:00] VITALS: BP 135/75; TEMP 97.5; O2SAT 100
[2024-04-13 20:00] VITALS: BP 127/78; TEMP 97.5; O2SAT 97
[2024-04-13] MEDS: POTASSIUM CHLORIDE 20 MEQ TAB.PRT.SR PO ONE (20:42)
[2024-04-13] MEDS: POTASSIUM CHLORIDE 20 MEQ POWDER PACKET PO ONE (21:13)
[2024-04-14] MEDS: ACETAMINOPHEN 325 MG TABLET PO PRN (01:28)
[2024-04-14 07:23] LABS: BASOPHILS % (AUTO) 0.2 % (0.0-2.0); EOSINOPHILS # (AUTO) 0.2 K/uL (0.0-0.7); EOSINOPHILS % (AUTO) 2.6 % (0.0-6.0); HEMATOCRIT 40 % (39-51); HEMOGLOBIN 12.9 g/dL (13.5-17.5); LYMPHOCYTES # (AUTO) 2.3 K/uL (0.8-4.8); LYMPHOCYTES % (AUTO) 33.6 % (20.0-44.0); MEAN CORPUSCULAR HEMOGLOBIN 26 PG (26.0-33.0); MEAN CORPUSCULAR HGB CONC 33 g/dl (31.0-36.0); MEAN CORPUSCULAR VOLUME 79 fL (80-96); MONOCYTES # (AUTO) 0.8 K/uL (0.1-1.30); MONOCYTES % (AUTO) 12.3 % (2.0-12.0); NEUTROPHILS # (AUTO) 3.4 K/uL (1.8-8.9); NEUTROPHILS % (AUTO) 51.3 % (43.0-81.0); PLATELET COUNT (AUTO) 127 K/uL (150-450); RED CELL DISTRIBUTION WIDTH 16.6 % (11.5-15.0); WHITE BLOOD COUNT (AUTO) 6.7 K/uL (4.3-11.0)
[2024-04-14 08:05] LABS: CALCIUM, SERUM 9.1 mg/dL (8.5-10.1); CREATININE 1.5 mg/dL (0.6-1.3); MAGNESIUM 2.1 mg/dL (1.8-2.4); PHOSPHORUS 3.6 mg/dL (2.5-4.9); POTASSIUM 3.8 mmol/L (3.5-5.1)
[2024-04-14] MEDS: NIFEdipine XL (30MG) 30 MG TAB PO SCH (09:39)
[2024-04-14] MEDS: CEFEPIME 2 GM in IV D5W 100 ML IV SCH (10:59)
[2024-04-14] MEDS: OLANZAPINE 10 MG VIAL IM ONE (16:54)
[2024-04-15 20:00] VITALS: BP 109/66; TEMP 98.8; O2SAT 95
[2024-04-16 06:53] LABS: BASOPHILS % (AUTO) 0.4 % (0.0-2.0); EOSINOPHILS # (AUTO) 0.2 K/uL (0.0-0.7); EOSINOPHILS % (AUTO) 2.5 % (0.0-6.0); HEMATOCRIT 37 % (39-51); LYMPHOCYTES # (AUTO) 1.7 K/uL (0.8-4.8); LYMPHOCYTES % (AUTO) 23.8 % (20.0-44.0); MEAN CORPUSCULAR HEMOGLOBIN 26 PG (26.0-33.0); MEAN CORPUSCULAR HGB CONC 32 g/dl (31.0-36.0); MEAN CORPUSCULAR VOLUME 79 fL (80-96); MONOCYTES # (AUTO) 0.9 K/uL (0.1-1.30); NEUTROPHILS # (AUTO) 4.3 K/uL (1.8-8.9); NEUTROPHILS % (AUTO) 60.3 % (43.0-81.0); PLATELET COUNT (AUTO) 125 K/uL (150-450); RED BLOOD CELL COUNT(AUTO) 4.69 MIL/uL (4.5-6.0); RED CELL DISTRIBUTION WIDTH 16.8 % (11.5-15.0); WHITE BLOOD COUNT (AUTO) 7.2 K/uL (4.3-11.0)
[2024-04-16 07:13] LABS: CALCIUM, SERUM 8.7 mg/dL (8.5-10.1); CREATININE 1.6 mg/dL (0.6-1.3); POTASSIUM 3.6 mmol/L (3.5-5.1)
[2024-04-16] MEDS: Z GUARD REMEDY 4 OZ OINT TP PRN (10:06)
[2024-04-16] MEDS ORDERED: HYDR-4077 PO (12:34)
[2024-04-16 17:20] VITALS: BP 118/86
[2024-04-18 16:11] LABS: *SPE A/G RATIO 0.7 (0.7-1.7); *SPE ALBUMIN 2.7 g/dL (2.9-4.4); *SPE ALPHA-1-GLOBULIN 0.3 g/dL (0.0-0.4); *SPE BETA GLOBULIN 1.2 g/dL (0.7-1.3); *SPE GLOBULIN, TOTAL 4.1 g/dL (2.2-3.9); *SPE M-SPIKE Not Observed g/dL (Not Observed); *SPE PROTEIN TOTAL 6.8 g/dL (6.0-8.5); *SPEGAMMA GLOBULIN 1.5 g/dL (0.4-1.8)
== END 2024-04-16 17:50 | DRG 291 ==
LOC: ER 13:24 → TELE 15:49 → MED 04-13 12:53
PROVIDERS: ADMIT Internal Medicine; ATTEND Internal Medicine
DX: I13.0 Hypertensive heart and chronic kidney disease with heart failure and stage 1 through stage 4 chronic kidney disease, or unspecified chronic kidney disease (principal); G93.41 Metabolic encephalopathy; I50.23 Acute on chronic systolic (congestive) heart failure; N17.0 Acute kidney failure with tubular necrosis; J96.00 Acute respiratory failure, unspecified whether with hypoxia or hypercapnia; F02.83 Dementia in other diseases classified elsewhere, unspecified severity, with mood disturbance; F02.82 Dementia in other diseases classified elsewhere, unspecified severity, with psychotic disturbance; J44.0 Chronic obstructive pulmonary disease with (acute) lower respiratory infection; I16.0 Hypertensive urgency; E78.5 Hyperlipidemia, unspecified; B35.1 Tinea unguium; N18.32 Chronic kidney disease, stage 3b; N40.0 Benign prostatic hyperplasia without lower urinary tract symptoms; F31.9 Bipolar disorder, unspecified; F43.10 Post-traumatic stress disorder, unspecified; G30.9 Alzheimer's disease, unspecified; I87.2 Venous insufficiency (chronic) (peripheral); N28.1 Cyst of kidney, acquired; Z87.440 Personal history of urinary (tract) infections; Z79.899 Other long term (current) drug therapy; Z79.82 Long term (current) use of aspirin; F29 Unspecified psychosis not due to a substance or known physiological condition; D64.9 Anemia, unspecified; J43.9 Emphysema, unspecified; M89.8X9 Other specified disorders of bone, unspecified site; R60.0 Localized edema; Z74.09 Other reduced mobility; R91.1 Solitary pulmonary nodule
CPT/HCPCS: 36415; 71045-TC; 71250-TC; 80048-TC; 80053-TC; 81001; 82570-TC; 83735-TC; 83880; 84100-TC; 84155; 84165; 84300-TC; 84484-TC; 85025-TC; 87086-TC; 93307-TC; 93970-TC; 97110-TC; 97530-TC; A4223; G0378; J0692; J1940; J3490; J7060

== ENCOUNTER 2024-10-09 23:47 | Inpatient (IN) | payer MEDICARE, OTHER ==
[~2024-10-09] VITALS: Ht 170.2 cm; Wt 81.6 kg
[~2024-10-09 23:47] MED LIST changes: +ASCO500C18 PO; +BISA10SU11 RC; -CEPH500C2 PO; -DOCU100T2 PO; +HYDR-4077 PO; +LOPE2TAB25 PO; +MULT-225 PO; -OLAN2.5T3 PO; -OLAN5TAB3 PO; +PANT40TA2 PO; +POTASSIUM CHLORIDE PO
[2024-10-10 00:24] LABS: PLATELET COUNT (AUTO) 123 K/uL (150-450); RED BLOOD CELL COUNT(AUTO) 5.37 MIL/uL (4.5-6.0); RED CELL DISTRIBUTION WIDTH 16.3 % (11.5-15.0); WHITE BLOOD COUNT (AUTO) 8.2 K/uL (4.3-11.0)
[2024-10-10 00:42] LABS: ASPARTATE AMINOTRANSFERASE 13.0 U/L (15-37); CALCIUM, SERUM 9.0 mg/dL (8.5-10.1); CREATININE 2.2 mg/dL (0.6-1.3); TOTAL PROTEIN, SERUM 8.2 g/dL (6.4-8.2); UREA NITROGEN, BLOOD 60.0 mg/dL (7-18)
[2024-10-10 00:44] LABS: SODIUM SERUM 156.0 mmol/L (136-145)
[2024-10-10] MEDS: IV NS 0.9% 1,000 ML BAG IV ONE (00:59)
[2024-10-10 01:04] LABS: INR 1.01 (0.91-1.10)
[2024-10-10] MEDS ORDERED: CRAN250C PO (01:09)
[2024-10-10] MEDS ORDERED: LACT10SO58 PO (01:09)
[2024-10-10] MEDS ORDERED: Z GUARD REMEDY 4 OZ OINT TP PRN (01:30)
[2024-10-10] MEDS ORDERED: ONDANSETRON HCL/PF 4 MG/2 ML VIAL IVP PRN (01:30)
[2024-10-10 04:00] VITALS: BP 148/76; TEMP 98
[2024-10-10] MEDS: IV NS 0.9% 1,000 ML IV SCH (05:55)
[2024-10-10 07:06] LABS: CALCIUM, SERUM 9.1 mg/dL (8.5-10.1); CREATININE 2.1 mg/dL (0.6-1.3); PHOSPHORUS 3.6 mg/dL (2.5-4.9); UREA NITROGEN, BLOOD 57.0 mg/dL (7-18)
[2024-10-10 07:45] LABS: SODIUM SERUM 156.0 mmol/L (136-145)
[2024-10-10 08:00] VITALS: BP 125/87; TEMP 97.4; O2SAT 97
[2024-10-10] MEDS ORDERED: MAGNESIUM HYDROXIDE 30 ML UDC PO PRN (08:30)
[2024-10-10] MEDS ORDERED: BISACODYL SUPP (10 MG) 10 MG/SUPP.RECT SUPP.RECT RC PRN (08:30)
[2024-10-10] MEDS: MULTIVITAMINS,THERAGRAN 1 UDTAB TABLET PO SCH (08:42)
[2024-10-10] MEDS: DIVALPROEX SODIUM 125 MG TABLET.DR PO SCH (08:43)
[2024-10-10] MEDS: CARVEDILOL 3.125 MG TABLET PO SCH (08:44)
[2024-10-10] MEDS: ASCORBIC ACID 500 MG TABLET PO SCH (08:44)
[2024-10-10] MEDS: POVIDONE EACHEYE SCH (09:00)
[2024-10-10] MEDS: [UNRECOGNIZED DRUG - OTHER] EACHEYE SCH (09:00)
[2024-10-10] MEDS: POLYVINYL ALCOHOL EACHEYE SCH (09:00)
[2024-10-10] MEDS ORDERED: IV NS 0.9% 1,000 ML BAG IV PRN (11:30)
[2024-10-10] MEDS: IV NS 0.9% 1,000 ML IV PRN (13:25)
[2024-10-10 14:13] LABS: CALCIUM, SERUM 9.0 mg/dL (8.5-10.1); CREATININE 2.0 mg/dL (0.6-1.3); SODIUM SERUM 155.0 mmol/L (136-145); UREA NITROGEN, BLOOD 53.0 mg/dL (7-18)
[2024-10-10] MEDS: QUETIAPINE FUMARATE 25 MG TABLET PO SCH (16:36)
[2024-10-10 20:00] VITALS: BP 123/96; TEMP 98.1; O2SAT 95
[2024-10-10] MEDS: TAMSULOSIN 0.4 MG CAP.SR.24H PO SCH (22:38)
[2024-10-10] MEDS: ATORVASTATIN 40 MG TABLET PO SCH (22:38)
[2024-10-10 22:50] LABS: CALCIUM, SERUM 8.8 mg/dL (8.5-10.1); CREATININE 2.0 mg/dL (0.6-1.3); SODIUM SERUM 154.0 mmol/L (136-145); UREA NITROGEN, BLOOD 54.0 mg/dL (7-18)
[2024-10-11] VITALS: BP 150/86; TEMP 98.6; O2SAT 100
[2024-10-11 04:00] VITALS: BP 148/85; TEMP 98.6; O2SAT 100
[2024-10-11 08:00] VITALS: BP 164/96; TEMP 97.4; O2SAT 98
[2024-10-11] MEDS: PANTOPRAZOLE 40 MG TABLET.DR PO SCH (10:27)
[2024-10-11] MEDS: IV LR 1000 ML 1,000 ML IV PRN (11:38)
[2024-10-11 11:40] LABS: PLATELET COUNT (AUTO) 118 K/uL (150-450); RED BLOOD CELL COUNT(AUTO) 5.24 MIL/uL (4.5-6.0); RED CELL DISTRIBUTION WIDTH 16.3 % (11.5-15.0); WHITE BLOOD COUNT (AUTO) 7.5 K/uL (4.3-11.0)
[2024-10-11 11:55] LABS: ASPARTATE AMINOTRANSFERASE 18.0 U/L (15-37); CALCIUM, SERUM 9.0 mg/dL (8.5-10.1); CREATININE 1.8 mg/dL (0.6-1.3); PHOSPHORUS 3.3 mg/dL (2.5-4.9); TOTAL PROTEIN, SERUM 7.9 g/dL (6.4-8.2); UREA NITROGEN, BLOOD 47.0 mg/dL (7-18)
[2024-10-11 11:56] LABS: CREATINE KINASE, TOTAL 553.0 U/L (39-308)
[2024-10-11 12:03] LABS: SODIUM SERUM 155.0 mmol/L (136-145)
[2024-10-11] MEDS: AMLODIPINE BESYLATE 5 MG TABLET PO SCH (13:21)
[2024-10-11] MEDS: QUETIAPINE FUMARATE 25 MG TABLET PO SCH ×2 (13:22→21:14)
[2024-10-11 20:00] VITALS: BP 149/82; TEMP 97.5; O2SAT 99
[2024-10-12 04:00] VITALS: TEMP 97.5; O2SAT 98
[2024-10-12] MEDS: QUETIAPINE FUMARATE 25 MG TABLET PO PRN (05:00)
[2024-10-12 05:08] LABS: PTH, INTACT 67 pg/mL (15-65)
[2024-10-12 08:00] VITALS: BP 149/101; TEMP 98.1; O2SAT 98
[2024-10-12 09:45] LABS: PLATELET COUNT (AUTO) 109 K/uL (150-450); RED BLOOD CELL COUNT(AUTO) 5.21 MIL/uL (4.5-6.0); RED CELL DISTRIBUTION WIDTH 16.2 % (11.5-15.0); WHITE BLOOD COUNT (AUTO) 8.8 K/uL (4.3-11.0)
[2024-10-12 09:58] LABS: CALCIUM, SERUM 9.1 mg/dL (8.5-10.1); CREATININE 2.0 mg/dL (0.6-1.3); PHOSPHORUS 3.0 mg/dL (2.5-4.9); SODIUM SERUM 154.0 mmol/L (136-145); UREA NITROGEN, BLOOD 42.0 mg/dL (7-18)
[2024-10-12] MEDS: IV D5W 1,000 ML IV PRN (13:33)
[2024-10-12 16:00] VITALS: BP 136/97; TEMP 98; O2SAT 99
[2024-10-12 20:00] VITALS: BP 143/94; TEMP 96.8; O2SAT 100
[2024-10-13 04:00] VITALS: BP 113/62; TEMP 97; O2SAT 98
[2024-10-13 08:00] VITALS: BP 136/80; TEMP 97.7; O2SAT 96
[2024-10-13] MEDS: AMLODIPINE BESYLATE 5 MG TABLET PO SCH (08:16)
[2024-10-13 12:30] LABS: PLATELET COUNT (AUTO) 104 K/uL (150-450); RED BLOOD CELL COUNT(AUTO) 5.05 MIL/uL (4.5-6.0); RED CELL DISTRIBUTION WIDTH 16.3 % (11.5-15.0); WHITE BLOOD COUNT (AUTO) 5.2 K/uL (4.3-11.0)
[2024-10-13 12:34] LABS: ASPARTATE AMINOTRANSFERASE 25.0 U/L (15-37); CALCIUM, SERUM 8.7 mg/dL (8.5-10.1); CREATININE 1.6 mg/dL (0.6-1.3); PHOSPHORUS 3.2 mg/dL (2.5-4.9); SODIUM SERUM 150.0 mmol/L (136-145); TOTAL PROTEIN, SERUM 7.2 g/dL (6.4-8.2); UREA NITROGEN, BLOOD 34.0 mg/dL (7-18)
[2024-10-13 12:35] LABS: CREATINE KINASE, TOTAL 856.0 U/L (39-308)
[2024-10-13] MEDS: POTASSIUM CHLORIDE 20 MEQ TAB.PRT.SR PO ONE (14:10)
[2024-10-13 16:00] VITALS: BP 123/100; TEMP 97.9; O2SAT 98
[2024-10-13 20:00] VITALS: BP 132/90; TEMP 97.8; O2SAT 96
[2024-10-14 04:00] VITALS: BP 136/98; TEMP 97.5; O2SAT 97
[2024-10-14 07:05] LABS: PLATELET COUNT (AUTO) 99 K/uL (150-450); RED BLOOD CELL COUNT(AUTO) 4.99 MIL/uL (4.5-6.0); RED CELL DISTRIBUTION WIDTH 16.6 % (11.5-15.0); WHITE BLOOD COUNT (AUTO) 5.5 K/uL (4.3-11.0)
[2024-10-14 07:17] LABS: ASPARTATE AMINOTRANSFERASE 26.0 U/L (15-37); CALCIUM, SERUM 8.8 mg/dL (8.5-10.1); CREATININE 1.5 mg/dL (0.6-1.3); PHOSPHORUS 3.3 mg/dL (2.5-4.9); SODIUM SERUM 148.0 mmol/L (136-145); TOTAL PROTEIN, SERUM 6.9 g/dL (6.4-8.2); UREA NITROGEN, BLOOD 32.0 mg/dL (7-18)
[2024-10-14 08:00] VITALS: BP 133/105; TEMP 97; O2SAT 96
[2024-10-14] MEDS: AMLODIPINE BESYLATE 5 MG TABLET PO SCH (08:11)
[2024-10-14] MEDS: POTASSIUM CHLORIDE 20 MEQ TAB.PRT.SR PO SCH (10:01)
[2024-10-14 16:00] VITALS: BP 137/77; TEMP 97; O2SAT 97
[2024-10-14 19:34] LABS: APPEARANCE,URINE CLEAR (CLEAR); BLOOD, URINE NEGATIVE Ery/uL (NEGATIVE); LEUKOCYTE ESTERASE ,URINE NEGATIVE (NEGATIVE); NITRITE, URINE NEGATIVE (NEGATIVE); UGLUCOSE NEGATIVE (NEGATIVE)
[2024-10-14 19:46] LABS: CREATININE, URINE 128.6 MG/DL (30.0-125.0); URINE SODIUM, RANDOM 44.0 mmol/l (40-220); URINE TOTAL PROTEIN 15.8 mg/dL (0-11.9)
[2024-10-14 19:47] LABS: ADD URINE CULTURE NO; COARSE GRANULAR CASTS,URINE Few /LPF (None Seen); SQUAMOUS EPITHELIAL CELL,UR Few /HPF (None Seen)
[2024-10-14 19:48] LABS: EOSINOPHIL,URINE None Seen
[2024-10-14 20:00] VITALS: BP 124/82; TEMP 97.5; O2SAT 100
[2024-10-14] MEDS: ACETAMINOPHEN 325 MG TABLET PO PRN (20:43)
[2024-10-15 01:07] LABS: PTH, INTACT 112 pg/mL (15-65)
[2024-10-15 04:00] VITALS: BP 112/84; TEMP 97.3; O2SAT 100
[2024-10-15 07:53] LABS: PLATELET COUNT (AUTO) 89 K/uL (150-450); RED BLOOD CELL COUNT(AUTO) 5.21 MIL/uL (4.5-6.0); RED CELL DISTRIBUTION WIDTH 16.3 % (11.5-15.0); WHITE BLOOD COUNT (AUTO) 4.7 K/uL (4.3-11.0)
[2024-10-15 08:00] VITALS: BP 113/78; TEMP 97.9; O2SAT 96
[2024-10-15 08:26] LABS: CALCIUM, SERUM 8.8 mg/dL (8.5-10.1); CREATININE 1.7 mg/dL (0.6-1.3); PHOSPHORUS 3.3 mg/dL (2.5-4.9); SODIUM SERUM 146.0 mmol/L (136-145); UREA NITROGEN, BLOOD 29.0 mg/dL (7-18)
[2024-10-15 10:10] LABS: VALPROIC ACID 40.0 ug/mL (50-100)
[2024-10-15 12:04] VITALS: BP 116/92
[2024-10-15] MEDS ORDERED: Tamsulosin PO (12:27)
[2024-10-15] MEDS ORDERED: AMLO-212 PO (12:27)
[2024-10-15] MEDS ORDERED: QUET25TA PO ×2 (12:27)
[2024-10-15] MEDS ORDERED: TAMS-12 PO (12:27)
[2024-10-15 13:08] LABS: PLATELET ESTIMATE GIANT PLATELET SEEN
[2024-10-15 13:14] LABS: EOSINOPHILS % (MANUAL) 2 % (0-4); LYMPHOCYTES % (MANUAL) 46 % (16-48); MONOCYTES % (MANUAL) 4 % (0-11.0); NEUTROPHILS % (MANUAL) 48 (42-76)
[2024-10-15 15:07] LABS: *SPE A/G RATIO 0.7 (0.7-1.7); *SPE ALBUMIN 3.2 g/dL (2.9-4.4); *SPE ALPHA-1-GLOBULIN 0.3 g/dL (0.0-0.4); *SPE ALPHA-2-GLOBULIN 1.0 g/dL (0.4-1.0); *SPE BETA GLOBULIN 1.2 g/dL (0.7-1.3); *SPE GLOBULIN, TOTAL 4.3 g/dL (2.2-3.9); *SPE M-SPIKE Not Observed g/dL (Not Observed); *SPE PROTEIN TOTAL 7.5 g/dL (6.0-8.5); *SPEGAMMA GLOBULIN 1.8 g/dL (0.4-1.8)
[2024-10-15] MEDS ORDERED: TAMSULOSIN 0.4 MG CAP.SR.24H PO SCH (22:00)
[2024-10-16 16:07] LABS: *SPE A/G RATIO 0.9 (0.7-1.7); *SPE ALBUMIN 3.0 g/dL (2.9-4.4); *SPE ALPHA-1-GLOBULIN 0.2 g/dL (0.0-0.4); *SPE ALPHA-2-GLOBULIN 0.6 g/dL (0.4-1.0); *SPE BETA GLOBULIN 0.9 g/dL (0.7-1.3); *SPE GLOBULIN, TOTAL 3.4 g/dL (2.2-3.9); *SPE M-SPIKE Not Observed g/dL (Not Observed); *SPE PROTEIN TOTAL 6.4 g/dL (6.0-8.5); *SPEGAMMA GLOBULIN 1.5 g/dL (0.4-1.8)
== END 2024-10-15 17:19 | DRG 641 ==
LOC: ER 23:51 → MEDSG1 10-10 01:39 → TELE1 10-10 05:42 → MEDSG1 10-11 09:39
PROVIDERS: ADMIT Nurse Practitioner Acute Care; ATTEND Nurse Practitioner Acute Care
DX: E86.0 Dehydration (principal); N17.9 Acute kidney failure, unspecified; I13.0 Hypertensive heart and chronic kidney disease with heart failure and stage 1 through stage 4 chronic kidney disease, or unspecified chronic kidney disease; F03.93 Unspecified dementia, unspecified severity, with mood disturbance; N13.8 Other obstructive and reflux uropathy; F03.92 Unspecified dementia, unspecified severity, with psychotic disturbance; G93.49 Other encephalopathy; E87.1 Hypo-osmolality and hyponatremia; E86.9 Volume depletion, unspecified; I50.9 Heart failure, unspecified; N18.9 Chronic kidney disease, unspecified; N40.0 Benign prostatic hyperplasia without lower urinary tract symptoms; F43.10 Post-traumatic stress disorder, unspecified; F31.9 Bipolar disorder, unspecified; N40.1 Benign prostatic hyperplasia with lower urinary tract symptoms; E78.5 Hyperlipidemia, unspecified; Z79.82 Long term (current) use of aspirin; Z79.899 Other long term (current) drug therapy; E87.6 Hypokalemia; Z91.199 Patient's noncompliance with other medical treatment and regimen due to unspecified reason; F29 Unspecified psychosis not due to a substance or known physiological condition; T46.4X5A Adverse effect of angiotensin-converting-enzyme inhibitors, initial encounter; Y92.9 Unspecified place or not applicable; N25.0 Renal osteodystrophy; Z87.09 Personal history of other diseases of the respiratory system; T50.2X5A Adverse effect of carbonic-anhydrase inhibitors, benzothiadiazides and other diuretics, initial encounter; F39 Unspecified mood [affective] disorder
CPT/HCPCS: 36415; 76770-TC; 80048-TC; 80053-TC; 80076-TC; 80164-TC; 81001; 82140-TC; 82550-TC; 82553; 82565-TC; 82570-TC; 83690-TC; 83735-TC; 83935-TC; 83970; 84100-TC; 84155; 84165; 84300-TC; 85025-TC; 85027-TC; 85730-TC; 87081-TC; 87086-TC; 93307-TC; A4223; G0378; J7030; J7070